=== PATIENT | female | born 1985 | race African-American/Black ===

== ENCOUNTER 2016-12-14 12:35 | Emergency (ER) | payer OTHER ==
[2016-12-14 12:54] VITALS: BP 117/69; PULSE 75; TEMP 98; BMI 21.1
--- NOTE | 2016-12-14 13:24 | PDOC ---
History of Present Illness - General Chief Complaint: Back Pain Stated Complaint: BACK PAIN Time Seen by Provider: 12/14/16 13:02 History Source: Patient - History of Present Illness Occurred: reports: other Pain Location: reports: back Past History - Past Medical History Allergies/Adverse Reactions: Allergies Allergy/AdvReac Type Severity Reaction Status Date / Time No Known Allergies Allergy Verified 12/14/16 12:50 Home Medications: Ambulatory Orders Hydrocodone/Ibuprofen [Hydrocodone-Ibuprofen 7.5-200] 1 each PO Q6H #15 tablet MDD 4 12/14/16 Ibuprofen [Motrin -] 800 mg PO Q6H #30 tablet 12/14/16 Other medical history: DENIES. - Psycho/Social/Smoking Cessation Hx Suicidal Ideation: No Smoking History: Never smoked Number of Cigarettes Smoked Daily: 0 Hx Alcohol Use: No Review of Systems - Review of Systems Constitutional: No: Chills, Fever ABD/GI: No: Nausea, Vomiting : Yes: Flank Pain. No: Dysuria, Hematuria *Physical Exam - Vital Signs Last Vital Signs Temp Pulse Resp BP Pulse Ox 98 F 75 19 117/69 96 12/14/16 12:50 12/14/16 12:50 12/14/16 12:50 12/14/16 12:50 12/14/16 12:50 - Physical Exam General Appearance: Yes: Appropriately Dressed. No: Apparent Distress HEENT: positive: Normal Voice Neck: positive: Supple. negative: Lymphadenopathy (R), Lymphadenopathy (L) Respiratory/Chest: negative: Respiratory Distress Gastrointestinal/Abdominal: positive: Soft. negative: Tender Musculoskeletal: positive: Vertebral Tenderness (ttp to L flank). negative: CVA Tenderness Integumentary: positive: Dry, Warm Neurologic: positive: Fully Oriented, Alert, Normal Mood/Affect Medical Decision Making - Medical Decision Making 12/14/16 13:23 31 yo F, no significant history, presenting with flank pain. Patient complaining of left flank pain for 5 days that has been worsening. Unable to describe, but states pain worse with certain movements. Taking Advil with no relief. Denies dysuria, hematuria, frequency, nausea, vomiting, fever or chills. Denies any trauma. No history of kidney stones. Denies similar pain in the past. see exam L flank pain No sxs, n/v/f/c Reproducible pain in ED but no CVAT M/l MSK, less likely stone or infxn -pain control -ua -?CT 12/14/16 15:12 Pt reports some relief w/ meds in ED. Ua w/ 1+ LE, no nit or blood to suggest infection or stone. Ucx pending. Will dc w/ pain control and instructions to return for worsening of symptoms *DC/Admit/Observation/Transfer Diagnosis at time of Disposition: Back pain Qualifiers: Back pain location: low back pain Chronicity: acute Back pain laterality: left Sciatica presence: without sciatica Qualified Code(s): M54.5 - Low back pain - Discharge Dispostion Disposition: HOME - Prescriptions Prescriptions: Hydrocodone/Ibuprofen [Hydrocodone-Ibuprofen 7.5-200] 1 each PO Q6H #15 tablet MDD 4 Ibuprofen [Motrin -] 800 mg PO Q6H #30 tablet - Patient Instructions Printed Discharge Instructions: Low Back Pain Additional Instructions: Take medications as directed and return to ED for worsening of symptoms
[2016-12-14 14:11] LABS: URINE APPEARANCE SLCLOUDY; URINE BILIRUBIN NEGATIVE (NEGATIVE); URINE BLOOD NEGATIVE (NEGATIVE); URINE COLOR YELLOW; URINE GLUCOSE (UA) NEGATIVE (NEGATIVE); URINE KETONE TRACE (NEGATIVE); URINE NITRITE NEGATIVE (NEGATIVE); URINE PROTEIN NEGATIVE (NEGATIVE); URINE UROBILINOGEN 2.0 E.U/dl E.U./dl (0.2-1.0)
[2016-12-14 14:13] LABS: URINE LEUK ESTERASE 1+ (NEGATIVE)
[2016-12-14 14:16] LABS: URINE MUCUS MODERATE; URINE RBC 2 /hpf (0-3); URINE WBC 4 /hpf (3-5); YEAST RARE
[2016-12-14] MEDS ORDERED: KETOROLAC TROMETHAMINE 60 MG/2 ML VIAL IM ONE (14:30)
[2016-12-14] MEDS ORDERED: KETOROLAC TROMETHAMINE 60 MG/2 ML VIAL ONE (14:35)
--- NOTE | 2016-12-14 16:30 | PDOC ---
*Physical Exam - Vital Signs Last Vital Signs Temp Pulse Resp BP Pulse Ox 98 F 75 19 117/69 96 12/14/16 12:50 12/14/16 12:50 12/14/16 12:50 12/14/16 12:50 12/14/16 12:50 ED Treatment Course - ADDITIONAL ORDERS Additional order review: Laboratory Results 12/14/16 12/14/16 13:15 13:15 Urine Color Yellow Urine Appearance Slcloudy Urine pH 6.0 Ur Specific [place] 1.026 Urine Protein Negative Urine Glucose (UA) Negative Urine Ketones Trace H Urine Blood Negative Urine Nitrite Negative Urine Bilirubin Negative Urine Urobilinogen 2.0 e.u/dl H Ur Leukocyte Esterase 1+ H Urine RBC 2 Urine WBC 4 Ur Epithelial Cells Moderate Urine Mucus Moderate Urine Yeast Rare Urine HCG, Qual Negative - Medications Given in the ED: ED Medications Discontinued Medications Generic Name Dose Route Start Last Admin Trade Name Dima PRN Reason Stop Dose Admin Ketorolac Tromethamine 60 mg 12/14/16 14:30 12/14/16 14:40 Toradol Injection - IM 12/14/16 14:31 60 mg ONCE ONE Administration Medical Decision Making - Medical Decision Making 12/14/16 16:29 Pharmacy called to report that pt's insurance does not cover the vicoprofen. Rx for percocet sent *DC/Admit/Observation/Transfer Diagnosis at time of Disposition: Back pain Qualifiers: Back pain location: low back pain Chronicity: acute Back pain laterality: left Sciatica presence: without sciatica Qualified Code(s): M54.5 - Low back pain - Discharge Dispostion Disposition: HOME - Prescriptions Prescriptions: Hydrocodone/Ibuprofen [Hydrocodone-Ibuprofen 7.5-200] 1 each PO Q6H #15 tablet MDD 4 Ibuprofen [Motrin -] 800 mg PO Q6H #30 tablet Oxycodone HCl/Acetaminophen [Percocet 5-325 mg Tablet] 1 tab PO Q4H #15 tablet MDD 4 - Referrals Referrals: Lalito Villalba MD [Primary Care Provider] - - Patient Instructions Printed Discharge Instructions: Low Back Pain Additional Instructions: Take medications as directed and return to ED for worsening of symptoms - Post Discharge Activity Work/School Note: Back to Work
== END 2016-12-14 15:17 | disposition home or self-care (01) ==
LOC: JERFT 12:35
PROC: 3E0233Z Introduction of Anti-inflammatory into Muscle, Percutaneous Approach (ICD-10-PCS; principal; 2016-12-14)
DX: M54.5 Low back pain (principal); R10.32 Left lower quadrant pain
CPT/HCPCS: 81003; 81015; 84703; 87086; 99281-25

== ENCOUNTER 2017-03-16 10:12 | Emergency (ER) | payer OTHER ==
[2017-03-16 10:20] VITALS: BP 108/72; PULSE 82; TEMP 98; BMI 23.5
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
== END 2017-03-16 11:19 | disposition home or self-care (01) ==
LOC: JERFT 10:12
DX: S16.1XXA Strain of muscle, fascia and tendon at neck level, initial encounter (principal); V43.52XA Car driver injured in collision with other type car in traffic accident, initial encounter; Y92.414 Local residential or business street as the place of occurrence of the external cause; Y93.89 Activity, other specified
CPT/HCPCS: 84703; 99281-25